=== PATIENT | female | born 1965 | race Caucasian/White ===

== ENCOUNTER 2016-11-01 10:17 | Emergency (ER) | payer OTHER ==
[~2016-11-01] VITALS: Ht 167.6 cm; Wt 54.4 kg
[~2016-11-01 10:17] MED LIST: GABAPENTIN800 MG PO; GEODON80 MG PO; NEURONTIN300 MG PO; ZIPRASIDONE HCL80 M1 PO
[2016-11-01] MEDS ORDERED: HYDROCODONE BIT1 T20 PO (10:25)
[2016-11-01] MEDS ORDERED: LAMOTRIGINE25 M1 PO (10:25)
[2016-11-01] MEDS ORDERED: GEODON80 MG PO (10:26)
[2016-11-01] MEDS ORDERED: SERTRALINE HYDR50 MG PO (10:26)
[2016-11-01] MEDS ORDERED: GABAPENTIN800 MG PO (10:33)
== END 2016-11-01 10:35 | disposition home or self-care (01) ==
LOC: ED 10:17
DX: Z76.0 Encounter for issue of repeat prescription (principal); F17.200 Nicotine dependence, unspecified, uncomplicated; Z79.899 Other long term (current) drug therapy

== ENCOUNTER 2016-11-30 12:21 | Emergency (ER) | payer OTHER ==
[~2016-11-30] VITALS: Ht 167.6 cm; Wt 55.3 kg
[~2016-11-30 12:21] MED LIST changes: +HYDROCODONE BIT1 T20 PO; +LAMOTRIGINE25 M1 PO; +SERTRALINE HYDR50 MG PO
== END 2016-11-30 17:10 | disposition left against medical advice (07) ==
LOC: ED 12:21
DX: S12.291A Other nondisplaced fracture of third cervical vertebra, initial encounter for closed fracture (principal); F17.200 Nicotine dependence, unspecified, uncomplicated; Z79.899 Other long term (current) drug therapy; Z91.19 Patient's noncompliance with other medical treatment and regimen; X58.XXXA Exposure to other specified factors, initial encounter; Y93.89 Activity, other specified; Y92.89 Other specified places as the place of occurrence of the external cause; Y99.8 Other external cause status

== ENCOUNTER 2017-03-02 10:06 | Emergency (ER) | payer OTHER ==
[~2017-03-02] VITALS: Ht 167.6 cm; Wt 55.3 kg
[2017-03-02] MEDS ORDERED: NAPROSYN500 MG PO (10:41)
[2017-03-02] MEDS ORDERED: AMOXICILLIN500 M2 PO (10:41)
== END 2017-03-02 11:14 | disposition home or self-care (01) ==
LOC: ED 10:06
DX: K08.89 Other specified disorders of teeth and supporting structures (principal); Z79.899 Other long term (current) drug therapy

== ENCOUNTER 2017-04-02 09:36 | Emergency (ER) | payer OTHER ==
[~2017-04-02] VITALS: Wt 54.4 kg
[~2017-04-02 09:36] MED LIST changes: +AMOXICILLIN500 M2 PO; +NAPROSYN500 MG PO
[2017-04-02 10:41] LABS: BASO # 0.1 10*3/uL (0.0-0.1); BASO % 0.8 % (0.0-1.0); EOS # 0.2 10*3/uL (0.0-0.4); EOS % 1.4 % (1.0-4.0); HEMATOCRIT 39.3 % (37.0-47.0); HEMOGLOBIN 12.3 g/dl (12.0-16.0); LYMPH % 15.8 % (27.0-41.0); MEAN CORPUSCULAR HGB 25.4 pg (27.0-31.0); MEAN CORPUSCULAR HGB CONC 31.3 g/dl (33.0-37.0); MEAN PLATELET VOLUME 9.5 fl (9.6-12.3); MONO # 0.5 10*3/uL (0.1-1.0); MONO % 4.1 % (3.0-9.0); NEUT # 9.7 10*3/uL (2.3-7.9); NEUT % 77.6 % (47.0-73.0); PLATELET COUNT AUTOMATED 747 10*3/uL (130-400); RED BLOOD COUNT 4.85 10*6/uL (4.10-5.10); RED CELL DISTRI WIDTH 16.8 % (0-14.5); WHITE BLOOD COUNT 12.5 10*3/uL (4.8-10.8)
[2017-04-02 10:52] LABS: BUN 8 mg/dl (7-24); CHLORIDE 105 mmol/L (98-107); CREATININE 0.79 mg/dL (0.55-1.02); POTASSIUM 4.5 mmol/L (3.5-5.1); SODIUM 138 mmol/L (136-145)
[2017-04-02 10:53] LABS: BILIRUBIN NEGATIVE (NEGATIVE); BLOOD NEGATIVE (NEGATIVE); CLARITY CLOUDY (CLEAR); COLOR YELLOW (YELLOW); GLUCOSE NEGATIVE (NEGATIVE); KETONE TRACE (NEGATIVE); NITRITE NEGATIVE (NEGATIVE); UROBILINOGEN 0.2 E.U./dl (0.2-1.0)
[2017-04-02 10:54] LABS: ETHYL ALCOHOL < 3.0 mg/dl (<3)
[2017-04-02 10:55] LABS: ACETAMINOPHEN (TYLENOL) < 2.0 ug/ml (10-30)
[2017-04-02 11:01] LABS: BACTERIA 2+; LEUKO ESTERASE NEGATIVE (NEGATIVE)
[2017-04-02 11:08] LABS: URINE AMPHETAMINES < 1000 (1000ng/ml); URINE BARBITURATES < 200 (200ng/ml); URINE BENZODIAZEPINES < 200 (200ng/ml); URINE CANNABINOIDS (THC) > 50 (50ng/ml); URINE COCAINE > 300 (300ng/ml); URINE METHADONE < 300 (300ng/ml); URINE OPIATES < 300 (300ng/ml)
[2017-04-02 11:12] LABS: URINE PHENCYCLIDINE < 25 (25ng/ml)
[2017-04-02] MEDS ORDERED: LAMICTAL100 MG PO (13:20)
[2017-04-02] MEDS ORDERED: ADDERALL 20 MG20 MG PO (13:21)
[2017-04-02] MEDS ORDERED: ZOLOFT50 MG PO (13:21)
[2017-04-02] MEDS ORDERED: GEODON80 MG PO (13:21)
[2017-04-02] MEDS ORDERED: NEURONTIN800 MG PO (13:21)
== END 2017-04-02 17:30 | disposition home health service (06) ==
LOC: ED 09:36
PROVIDERS: Emergency Medicine
DX: R45.851 Suicidal ideations (principal); F32.9 Major depressive disorder, single episode, unspecified; F20.9 Schizophrenia, unspecified; F17.210 Nicotine dependence, cigarettes, uncomplicated; Z79.899 Other long term (current) drug therapy

== ENCOUNTER 2019-06-17 10:44 | Emergency (ER) | payer OTHER ==
[~2019-06-17] VITALS: Ht 167.6 cm; Wt 63.5 kg
[~2019-06-17 10:44] MED LIST changes: +ADDERALL 20 MG20 MG PO; +LAMICTAL100 MG PO; +NEURONTIN800 MG PO; +ZOLOFT50 MG PO
[2019-06-17] MEDS ORDERED: MEDROL DOSEPAK4 MG PO (11:09)
[2019-06-17] MEDS ORDERED: METHOCARBAMOL500 M1 PO (11:09)
[2019-06-17] MEDS ORDERED: NAPROSYN500 MG PO (11:09)
== END 2019-06-17 11:36 | disposition home or self-care (01) ==
LOC: ED 10:44
DX: S39.012A Strain of muscle, fascia and tendon of lower back, initial encounter (principal); M25.551 Pain in right hip; M25.552 Pain in left hip; Z79.899 Other long term (current) drug therapy; X58.XXXA Exposure to other specified factors, initial encounter; Y93.89 Activity, other specified; Y92.89 Other specified places as the place of occurrence of the external cause; Y99.8 Other external cause status

== ENCOUNTER 2019-07-05 10:12 | Emergency (ER) | payer OTHER ==
[~2019-07-05] VITALS: Ht 167.6 cm; Wt 63.5 kg
[~2019-07-05 10:12] MED LIST changes: +MEDROL DOSEPAK4 MG PO; +METHOCARBAMOL500 M1 PO
[2019-07-05] MEDS ORDERED: ROBAXIN-750750 MG PO (10:28)
[2019-07-05] MEDS ORDERED: PREDNISONE20 M1 PO (10:28)
== END 2019-07-05 10:31 | disposition home or self-care (01) ==
LOC: ED 10:12
DX: S39.012A Strain of muscle, fascia and tendon of lower back, initial encounter (principal); M54.42 Lumbago with sciatica, left side; M54.41 Lumbago with sciatica, right side; Z79.899 Other long term (current) drug therapy; X58.XXXA Exposure to other specified factors, initial encounter; Y93.89 Activity, other specified; Y92.89 Other specified places as the place of occurrence of the external cause; Y99.8 Other external cause status

== ENCOUNTER 2019-08-12 19:46 | Emergency (ER) | payer OTHER ==
[~2019-08-12] VITALS: Ht 167.6 cm; Wt 63.5 kg
[~2019-08-12 19:46] MED LIST changes: +PREDNISONE20 M1 PO; +ROBAXIN-750750 MG PO
[2019-08-12] MEDS ORDERED: MEDROL DOSEPAK4 MG PO (23:53)
== END 2019-08-13 00:46 | disposition home or self-care (01) ==
LOC: ED 19:46
DX: M54.16 Radiculopathy, lumbar region (principal); F17.200 Nicotine dependence, unspecified, uncomplicated; Z79.899 Other long term (current) drug therapy

== ENCOUNTER 2021-03-13 09:50 | Emergency (ER) | payer OTHER ==
[~2021-03-13] VITALS: Ht 167.6 cm; Wt 56.2 kg
[2021-03-13 10:28] LABS: BASO % 0.6 % (0.0-1.0); EOS # 0.1 10*3/uL (0.0-0.4); EOS % 1.4 % (1.0-4.0); HEMATOCRIT 32.6 % (37.0-47.0); LYMPH # 1.4 10*3/uL (1.3-4.4); LYMPH % 19.8 % (27.0-41.0); MEAN CELL VOLUME 81.3 fl (81.0-99.0); MEAN CORPUSCULAR HGB 25.9 pg (27.0-31.0); MEAN CORPUSCULAR HGB CONC 31.9 g/dl (33.0-37.0); MEAN PLATELET VOLUME 9.6 fl (9.6-12.3); MONO # 0.4 10*3/uL (0.1-1.0); MONO % 5.9 % (3.0-9.0); NEUT % 72.2 % (47.0-73.0); PLATELET COUNT AUTOMATED 456 10*3/uL (130-400); RED BLOOD COUNT 4.01 10*6/uL (4.10-5.10); RED CELL DISTRI WIDTH 16.3 % (0-14.5); WHITE BLOOD COUNT 6.9 10*3/uL (4.8-10.8)
[2021-03-13 10:45] LABS: ALBUMIN 3.1 gm/dl (3.1-4.5); ALKALINE PHOSPHATASE 112 U/L (45-117); BUN 12 mg/dl (7-24); CHLORIDE 98 mmol/L (98-107); CREATININE 0.57 mg/dL (0.55-1.02); LIPASE 52 U/L (73-393); POTASSIUM 2.9 mmol/L (3.5-5.1); SGOT/AST 15 IU/L (3-35); SGPT/ALT 21 U/L (12-78); SODIUM 137 mmol/L (136-145); TOTAL PROTEIN 7.4 gm/dL (6.4-8.2)
== END 2021-03-13 13:00 | disposition left against medical advice (07) ==
LOC: ED 09:50
PROVIDERS: Family Medicine
DX: R10.9 Unspecified abdominal pain (principal); F17.200 Nicotine dependence, unspecified, uncomplicated

== ENCOUNTER 2021-06-17 20:32 | Emergency (ER) | payer OTHER ==
[~2021-06-17] VITALS: Ht 167.6 cm
[2021-06-17 21:18] LABS: BASO % 0.7 % (0.0-1.0); EOS # 0.2 10*3/uL (0.0-0.4); EOS % 2.9 % (1.0-4.0); HEMATOCRIT 27.6 % (37.0-47.0); LYMPH # 1.6 10*3/uL (1.3-4.4); LYMPH % 25.7 % (27.0-41.0); MEAN CELL VOLUME 74.4 fl (81.0-99.0); MEAN CORPUSCULAR HGB 22.6 pg (27.0-31.0); MEAN CORPUSCULAR HGB CONC 30.4 g/dl (33.0-37.0); MEAN PLATELET VOLUME 9.8 fl (9.6-12.3); MONO # 0.5 10*3/uL (0.1-1.0); MONO % 7.4 % (3.0-9.0); NEUT # 3.9 10*3/uL (2.3-7.9); PLATELET COUNT AUTOMATED 614 10*3/uL (130-400); RED BLOOD COUNT 3.71 10*6/uL (4.10-5.10); RED CELL DISTRI WIDTH 17.5 % (0-14.5); WHITE BLOOD COUNT 6.1 10*3/uL (4.8-10.8)
[2021-06-17 21:20] LABS: BILIRUBIN Negative (Negative); BLOOD Negative (Negative); CLARITY Clear (Clear); COLOR Yellow (Yellow); GLUCOSE Negative (Negative); KETONE Negative (Negative); LEUKO ESTERASE Trace (Negative); NITRITE Negative (Negative); SPECIFIC GRAVITY <= 1.005 (1.001-1.030); UROBILINOGEN 0.2 E.U./dl (0.0-1.0)
[2021-06-17 21:28] LABS: URINE AMPHETAMINES < 1000 (1000ng/ml); URINE BARBITURATES < 200 (200ng/ml); URINE BENZODIAZEPINES < 200 (200ng/ml); URINE CANNABINOIDS (THC) < 50 (50ng/ml); URINE COCAINE < 300 (300ng/ml); URINE METHADONE < 300 (300ng/ml); URINE OPIATES < 300 (300ng/ml); URINE PHENCYCLIDINE < 25 (25ng/ml)
[2021-06-17 21:33] LABS: ALKALINE PHOSPHATASE 108 U/L (45-117); BUN 3 mg/dl (7-24); CHLORIDE 109 mmol/L (98-107); CPK 89 U/L (26-192); CREATININE 0.59 mg/dL (0.55-1.02); POTASSIUM 2.8 mmol/L (3.5-5.1); SGOT/AST 14 IU/L (3-35); SGPT/ALT 26 U/L (12-78); SODIUM 140 mmol/L (136-145); TOTAL PROTEIN 7.5 gm/dL (6.4-8.2)
[2021-06-17 21:34] LABS: BACTERIA TRACE; RBC 0-2 rbc/hpf (0-2)
== END 2021-06-18 06:38 | disposition home or self-care (01) ==
LOC: ED 20:32
PROVIDERS: Internal Medicine
DX: D64.9 Anemia, unspecified (principal); D72.829 Elevated white blood cell count, unspecified; F10.929 Alcohol use, unspecified with intoxication, unspecified; F19.10 Other psychoactive substance abuse, uncomplicated

== ENCOUNTER 2021-09-19 13:07 | Emergency (ER) | payer OTHER ==
[~2021-09-19] VITALS: Ht 167.6 cm; Wt 59.0 kg
[2021-09-19 13:35] LABS: BASO # 0.1 10*3/uL (0.0-0.1); BASO % 0.9 % (0.0-1.0); EOS # 0.4 10*3/uL (0.0-0.4); EOS % 5.1 % (1.0-4.0); HEMATOCRIT 28.8 % (37.0-47.0); LYMPH # 2.4 10*3/uL (1.3-4.4); LYMPH % 31.2 % (27.0-41.0); MEAN CELL VOLUME 73.7 fl (81.0-99.0); MEAN CORPUSCULAR HGB CONC 29.9 g/dl (33.0-37.0); MEAN PLATELET VOLUME 9.7 fl (9.6-12.3); MONO # 0.5 10*3/uL (0.1-1.0); MONO % 5.9 % (3.0-9.0); NEUT # 4.3 10*3/uL (2.3-7.9); NEUT % 56.6 % (47.0-73.0); PLATELET COUNT AUTOMATED 483 10*3/uL (130-400); RED BLOOD COUNT 3.91 10*6/uL (4.10-5.10); RED CELL DISTRI WIDTH 22.9 % (0-14.5); WHITE BLOOD COUNT 7.6 10*3/uL (4.8-10.8)
[2021-09-19 13:46] LABS: ACT PARTIAL THROMBO TIME 25.9 SECONDS (20.0-32.1)
[2021-09-19 13:52] LABS: ALKALINE PHOSPHATASE 129 U/L (45-117); BUN 7 mg/dl (7-24); CREATININE 0.88 mg/dL (0.55-1.02); SGOT/AST 10 IU/L (3-35); SGPT/ALT 15 U/L (12-78); TOTAL PROTEIN 6.8 gm/dL (6.4-8.2)
[2021-09-19 14:00] LABS: BILIRUBIN Negative (Negative); BLOOD Negative (Negative); CLARITY Clear (Clear); COLOR Yellow (Yellow); GLUCOSE Negative (Negative); KETONE Negative (Negative); LEUKO ESTERASE Negative (Negative); NITRITE Negative (Negative); SPECIFIC GRAVITY <= 1.005 (1.001-1.030); UROBILINOGEN 0.2 E.U./dl (0.0-1.0)
[2021-09-19 14:08] LABS: ETHYL ALCOHOL < 3.0 mg/dl (<3)
[2021-09-19 14:11] LABS: CHLORIDE 109 mmol/L (98-107); POTASSIUM 3.7 mmol/L (3.5-5.1); SODIUM 141 mmol/L (136-145)
[2021-09-19 14:16] LABS: PH 8.5 (4.5-8.0)
[2021-09-19 14:17] LABS: RBC 0-2 rbc/hpf (0-2)
[2021-09-19 14:20] LABS: URINE BARBITURATES < 200 (200ng/ml); URINE BENZODIAZEPINES < 200 (200ng/ml); URINE CANNABINOIDS (THC) < 50 (50ng/ml); URINE COCAINE < 300 (300ng/ml); URINE METHADONE < 300 (300ng/ml); URINE OPIATES < 300 (300ng/ml)
[2021-09-19 14:21] LABS: URINE AMPHETAMINES < 1000 (1000ng/ml)
[2021-09-19 14:27] LABS: URINE PHENCYCLIDINE < 25 (25ng/ml)
== END 2021-09-19 16:44 | disposition home or self-care (01) ==
LOC: ED 13:07
PROVIDERS: Emergency Medicine
DX: F43.21 Adjustment disorder with depressed mood (principal); F15.10 Other stimulant abuse, uncomplicated

== ENCOUNTER 2021-11-11 09:21 | Emergency (ER) | payer MEDICARE, MEDICAID ==
[2021-11-11] MEDS ORDERED: Motrin,Rufen800 MG PO (11:36)
== END 2021-11-11 11:45 | disposition home or self-care (01) ==
LOC: ED 09:21
DX: S49.91XA Unspecified injury of right shoulder and upper arm, initial encounter (principal); X58.XXXA Exposure to other specified factors, initial encounter; Y93.89 Activity, other specified; Y92.89 Other specified places as the place of occurrence of the external cause; Y99.8 Other external cause status

== ENCOUNTER 2021-12-23 13:35 | Emergency (ER) | payer MEDICARE ==
[~2021-12-23] VITALS: Ht 170.1 cm; Wt 59.0 kg
[~2021-12-23 13:35] MED LIST changes: +Motrin,Rufen800 MG PO
== END 2021-12-23 16:15 | disposition left against medical advice (07) ==
LOC: ED 13:35
DX: Z53.21 Procedure and treatment not carried out due to patient leaving prior to being seen by health care provider (principal)